=== PATIENT | male | born 1985 ===

== ENCOUNTER 2019-09-20 07:25 | Day surgery (SDC) | payer OTHER ==
[2019-09-20] VITALS (9 sets, daily range): BP systolic 127–177; BP diastolic 79–126
[~2019-09-20] VITALS: Ht 175.2 cm; Wt 107.2 kg
[~2019-09-20 07:25] MED LIST: ACET-1059 PO; CALC625T62 PO; CHOL20004 PO; DOCU-151 PO; cefazolin/dext.iso 2gm/50ml 50 ML IV ONE; famotidine 20mg tablet PO ONE; ringers solution, lacted 1,000 ML IV SCH
[2019-09-20] MEDS ORDERED: ROPIVAcaine 0.5% (5mg/ml) 30ml vial ONE ×2 (13:01→14:05)
[2019-09-20] MEDS ORDERED: sevoflurane 250ml liquid IH ONE (13:56)
[2019-09-20] MEDS ORDERED: midazolam 2 mg/2 ml injection ONE (13:59)
[2019-09-20] MEDS ORDERED: fentaNYL/PF 50MCG/1 ML 2ML syringe ONE ×3 (13:59→15:55)
[2019-09-20] MEDS ORDERED: propofol inj 20 ML IV ONE (14:52)
[2019-09-20] MEDS ORDERED: ceFAZolin 1000mg inj ONE (14:52)
[2019-09-20] MEDS ORDERED: ringers solution, lacted 1,000 ML IV SCH (15:16)
[2019-09-20] MEDS ORDERED: proCHLORperazine 10 MG/2 ml inj IV PRN (15:20)
[2019-09-20] MEDS ORDERED: morphine 4 MG/ML inj SYRINge IV PRN (15:20)
[2019-09-20] MEDS ORDERED: ondansetron/PF 4mg/2ml inj IV PRN (15:20)
[2019-09-20] MEDS ORDERED: meperidine/PF 25mg/ml syringe IV PRN ×3 (15:20)
[2019-09-20] MEDS ORDERED: morphine 2 MG/ML inj. syringe IV PRN (15:20)
[2019-09-20] MEDS ORDERED: vancomycin 1,000mg inj ONE (16:06)
--- NOTE | 2019-09-20 16:50 | NUR ---
Received from OR via BED, accompanied by Anesthesiologist DR Catie RAGSDALE- and report given by Anesthesiolgist. PATIENT A&OX4, DENIES PAIN, V/S WNL, NEUROVASCULAR CHECKS INTACT,20 G PIV RUE, SCD ON, DRESSING TO LEFT KNEE CDI WITH BRACE 0-90 DEGREES ON LLE
[2019-09-20] MEDS ORDERED: ketorolac trometh. 30mg/ml inj. IV ONE (17:10)
--- NOTE | 2019-09-20 18:00 | NUR ---
PATIENT A&OX4, DENIES PAIN, V/S WNL, NEUROVASCULAR CHECKS INTACT,20 G PIV RUE D/C, SCD OFF, DRESSING TO LEFT KNEE CDI WITH BRACE 0-90 DEGREES ON LLE. I HAVE REVIEWED D/C INSTRUCTIONS WITH PATIENT AND GUARD AND THEY HAVE VERBALIZED UNDERSTANDING. PATIENT D/C BACK TO [facility] WITH ALL BELONGINGS AND GUARD GAVE TRANSPORT.
== END 2019-09-20 18:00 ==
LOC: PAS 07:25 → EEVIPCON 12:30 → PAS 18:00
PROVIDERS: ATTEND Orthopaedic Surgery
DX: S82.142P Displaced bicondylar fracture of left tibia, subsequent encounter for closed fracture with malunion (principal); G89.18 Other acute postprocedural pain; E66.9 Obesity, unspecified; Z68.34 Body mass index [BMI] 34.0-34.9, adult; Z79.899 Other long term (current) drug therapy; Z87.891 Personal history of nicotine dependence; Z98.890 Other specified postprocedural states; X58.XXXD Exposure to other specified factors, subsequent encounter
CPT/HCPCS: 27720; 64447; 73560; 73590; 76000; 82948; C1713; J0690; J1885; J2175; J2250; J2704; J3010; J3370; J7120; A4215; A4618; A6449; A7000; J2795